=== PATIENT | male | born 1995 | race Caucasian/White ===

== ENCOUNTER 2018-01-11 06:12 | Emergency (ER) | payer BC ==
[2018-01-11] MEDS: DIPHENHYDRAMINE 50 MG INJ IM (06:45)
[2018-01-11] MEDS: predniSONE 20 MG TAB PO (06:46)
[2018-01-11] MEDS: FAMOTIDINE 20 MG TAB PO (06:46)
== END 2018-01-11 07:48 | disposition home or self-care (01) ==
LOC: FTE 06:12
DX: R21 Rash and other nonspecific skin eruption (principal)
CPT/HCPCS: 96372; 99284-25